=== PATIENT | male | born 1970 | race Caucasian/White ===

== ENCOUNTER 2019-05-28 06:18 | Inpatient (IN) ==
[2019-05-28] MEDS ORDERED: ONDANSETRON INJ 2 MG/ML 2 ML VIAL IV STA (06:37)
[2019-05-28] MEDS ORDERED: SODIUM CHLORIDE 0.9% 1000ML 1,000 ML IV ONE ×2 (06:37→18:40)
[2019-05-28] MEDS ORDERED: ACETAMINOPHEN 1,000 MG/100 ML VIAL IV STA (06:39)
[2019-05-28] MEDS: HYDROmorphone INJ 1 MG/ML SYRINGE IV PRN ×2 (06:49→07:58)
[2019-05-28 06:53] LABS: Basophils # (auto) 0.02 K/uL (0-0.2); Basophils % (auto) 0.2 %; Eosinophils # (auto) 0.12 K/uL (0-0.5); Hematocrit (blood only) 48.7 % (42-52); Hemoglobin 17.6 g/dL (14.0-18.0); Immature Granulocytes # (auto) 0.03 K/uL (0.00-0.02); Immature Granulocytes % (auto) 0.3 %; Lymphocytes # (auto) 2.48 K/uL (1.2-3.4); Lymphocytes % (auto) 21.2 %; Mean Corpuscular Hemoglobin 34.6 pg (25-34); Mean Corpuscular Hgb Conc 36.1 g/dL (32-36); Mean Corpuscular Volume 95.9 fL (80-100); Mean Platelet Volume 11.4 fL (7.4-10.4); Monocytes # (auto) 1.12 K/uL (0.11-0.59); Monocytes % (auto) 9.6 %; Neutrophils # (auto) 7.93 K/uL (1.4-6.5); Neutrophils % (auto) 67.7 %; Platelet Count 206 K/uL (130-400); RDW Coefficient of Variation 12.5 % (11.5-14.5); RDW Standard Deviation 43.4 fL (36.4-46.3); Red Blood Count 5.08 M/uL (4.7-6.1)
[2019-05-28 07:04] LABS: iSTAT Creatinine 0.9 mg/dl (0.6-1.3); iSTAT Ionized Calcium 1.17 mmol/l (1.12-1.32); iSTAT Potassium 3.6 mEq/L (3.3-5.0)
[2019-05-28] MEDS ORDERED: IOVERSOL 100ml IV PRN (07:06)
[2019-05-28 07:11] LABS: Appearance Urine Clear (Clear); Bacteria Urine Automated Negative (Negative); Blood Urine Negative (Negative); Color Urine Dark Yellow; Glucose Urine UA Negative (Negative); Ketones Urine Trace (Negative); Leukocyte Esterase Urine Trace (Negative); Nitrite Urine Negative (Negative); Protein Urine 1+ (Negative); Specific Gravity Urine 1.035 (1.000-1.030); Urobilinogen Urine Negative (Negative)
[2019-05-28 07:15] LABS: Albumin Level 4.1 gm/dl (3.4-5.0); BUN Creatinine Ratio 9.2 (10-20); Creatinine Clr Calc Pharmacy 108.5 ml/min; Est GFR (African American) 98.6; Est GFR (Non-African American) 85.1; Potassium 3.5 mmol/L (3.5-5.1)
[2019-05-28 07:18] LABS: Bilirubin,Total 1.3 mg/dl (0.2-1); Globulin 4.2 gm/dl (2.5-4.0); Total Protein 8.3 gm/dl (6.4-8.2)
[2019-05-28 07:29] LABS: Bilirubin Urine Negative (Negative); Ictotest Urine Negative (Negative)
--- NOTE | 2019-05-28 07:44 | CT Scan Report ---
CT OF THE ABDOMEN AND PELVIS WITH CONTRAST CLINICAL HISTORY: History of appendectomy, cholecystectomy and multiple small bowel obstructions. COMPARISON STUDY: None. TECHNIQUE: Following IV administration of 93 mL of Optiray-320, axial images of the abdomen and pelvi s were obtained from the lung bases to the proximal femurs. Images were reviewed in the axial, sagitt al, and coronal planes. IV contrast was administered without complication. Automated exposure contro l was utilized for the study. A dose lowering technique was utilized adhering to the principles of A DENISE. CT DOSE: 1491.74 mGy.cm FINDINGS: Lung bases are unremarkable. Fatty infiltration of the liver is noted. There is no biliary ductal dilatation status post cholecystectomy. The spleen, adrenal glands, right kidney and pancreas are normal. Note is made of a 2.3 cm cyst within lower pole of the left kidney. There is a 2 mm calcu sandi within the lower pole of the left kidney. There is no hydronephrosis. Major vasculature is patent . There is moderate dilatation of the proximal to mid small bowel. Transition point within the right mid abdomen and axial image 242 of 546 is noted. There is mild associated mesenteric infiltration and trace ascites. No pneumatosis, free air or portal venous gas is present. The more distal small bowel is decompressed. The appendix is surgically absent. Note is made of colonic diverticulosis without e vidence for acute diverticulitis. There are no suspicious osseous lesions. There is no lymphadenopath y. There is no abscess. There are fat-containing bilateral inguinal hernias. IMPRESSION: 1. Findings consistent with a moderate grade partial small bowel obstruction. Transition point within the right mid abdomen, likely on the basis of adhesions. Trace associated ascites and mild mesenteri c infiltration. No pneumatosis, free air or portal venous gas. 2. Fatty infiltration of the liver. ACT 112: Negative or not required by law. Electronically signed by: Scott Drake M.D. 05/28/2019 7:43 AM
--- NOTE | 2019-05-28 08:01 | Emergency Department Note ---
Entered by James Tenorio acting as a scribe for Sreekanth Ragsdale MD History of Present Illness General Chief complaint: Abdominal Pain Stated complaint: ABD PAIN Time Seen by Provider: 05/28/19 06:25 Source: patient History of Present Illness Onset (ago): day(s) 2 Location: abdomen Pain Consistency: + other (worsening) Maximum Pain Intensity: 10 Relieved By: + none Associated symptoms: + denies other symptoms and + nausea/vomiting The patient is a 48 year old M who presents to the Emergency Room with complaints of worsening abdominal pain that started 2 days. The patient notes that his abdominal pain is located in the RUQ of his abdomen. The patient states that his last heavy meal was at a [employer] party, Wednesday night. He notes that last night, he woke up in pain. He states that he has been experiencing nausea and vomiting. He adds that he vomited 3 times last night. He denies that his pain is relieved by anything. He also denies any other symptoms. He notes that he has a history of bowel obstructions, colon resection, an appendectomy and a cholecystectomy. Home Medications Home Medications Medication Instructions Recorded Confirmed Type lisinopril 0 mg PO DAILY 05/28/19 05/28/19 History rasagiline 1 mg PO DAILY 05/28/19 05/28/19 History Allergies Allergy/AdvReac Type Severity Reaction Status Date / Time No Known Allergies Allergy Unverified 05/28/19 07:45 Past Med/Surg History Medical History (Updated 05/28/19 @ 08:01 by Sreekanth Ragsdale MD) Allergies Anxiety Bowel obstruction GERD (gastroesophageal reflux disease) Parkinson's disease Surgical History (Updated 05/28/19 @ 07:05 by James Tenorio) History of appendectomy History of colon resection Hx of cholecystectomy Family History (Updated 05/28/19 @ 07:06 by James Tenorio) Other No significant family history Social History (Updated 05/28/19 @ 07:06 by James Tenorio) Preferred Language: Pashto Feels Safe at Home: Yes Smoking Status: Never smoker Hx Substance Use: No Review of Systems See HPI for pertinent positives & negatives. and A total of 10 systems reviewed and were otherwise negative Physical Exam Vital Signs Vital Signs - 24 hr 05/28/19 06:21 05/28/19 07:32 Temperature 36.8 C Temperature Source Oral Pulse Rate 113 H Respiratory Rate 20 Respiratory Effort / Characteristics Non-Labored Respiratory Depth Normal Blood Pressure 132/90 Blood Pressure Mean 104 Pulse Oximetry 97 92 Oxygen Delivery Method Room Air Room Air Sepsis Recent Fever Within 48 Hours No Sepsis Action Taken by Nursing No Action Required GENERAL: Awake, alert, well-appearing, in no acute distress HENT: Normocephalic, atraumatic. Oropharynx unremarkable. EYES: Normal conjunctiva. Sclera non-icteric. NECK: Supple. No nuchal rigidity. FROM. No JVD. RESPIRATORY: Clear to auscultation. CARDIAC: Regular rate, normal rhythm. Extremities warm and well perfused. Pulses equal. ABDOMEN: Soft, non-distended. Exquisitely tender to palpation of the RUQ. No rebound or guarding. No masses. Old chronic scar down midline. RECTAL: Deferred. MUSCULOSKELETAL: Chest examination reveals no tenderness. The back is symmetrical on inspection without obvious abnormality. There is no CVA tenderness to palpation. No joint edema. LOWER EXTREMITIES: Calves are equal size bilaterally and non-tender. No edema. No discoloration. NEURO: Normal sensorium. No sensory or motor deficits noted. SKIN: No rash or jaundice noted. Course Course 0654: The patient was evaluated in room A3. A complete history and physical exam was performed. 0751: I reviewed the patient's case with Dr. Glasgow, General Surgeon [place], [place]. 0753: I reviewed the patient's case with Dr. Romeo, [facility] Hospitalist. He will evaluate the patient for further management. Administered Medications Hydromorphone HCl (Dilaudid) 1 mg IV Q15M PRN PRN Reason: Pain Stop: 06/11/19 06:36 Last Admin: 05/28/19 07:58 Dose: 1 mg Documented by: [id number] Admin: 05/28/19 06:49 Dose: 1 mg Documented by: [id number] Ioversol (Optiray 320 100ml) 93 ml IV ONCE PRN PRN Reason: Interaction Checking Stop: 06/01/19 07:05 Last Admin: 05/28/19 07:06 Dose: 93 ml Documented by: [id number] Discontinued Medications Sodium Chloride (Nss 1000ml) 1,000 mls @ 999 mls/hr IV .Q1H1M ONE Stop: 05/28/19 07:37 Last Admin: 05/28/19 06:50 Dose: 999 mls/hr Documented by: [id number] Acetaminophen (Ofirmev) 1,000 mg in 100 mls @ 400 mls/hr IV NOW STA Stop: 05/28/19 06:53 Last Infusion: 05/28/19 07:14 Dose: 0 mls/hr Documented by: [id number] Admin: 05/28/19 06:50 Dose: 400 mls/hr Documented by: [id number] Ondansetron HCl (Zofran) 4 mg IV NOW STA Stop: 05/28/19 06:38 Last Admin: 05/28/19 06:49 Dose: 4 mg Documented by: [id number] Medical Decision Making Differential Diagnosis Differential diagnosis: Etiologies such as appendicitis, diverticulitis, PUD, biliary pathology, UTI, pancreatitis, obstruction, mesenteric ischemia, aortic pathology, infections, inflammatory bowel disease, renal colic, as well as others were entertained. Medical Records Attestation: I reviewed the patient's medical records. Home Medications Current Medication List: was personally reviewed by me Laboratory Data Attestation: I reviewed the patient's lab results. Result diagrams: 05/28/19 06:44 05/28/19 06:44 Lab Results 05/28/19 05/28/19 05/28/19 Range/Units 06:44 06:44 06:49 WBC 11.70 H (4.8-10.8) K/uL RBC 5.08 (4.7-6.1) M/uL Hgb 17.6 (14.0-18.0) g/dL POC Hgb 17.0 (14.0-18.0) g/dl Hct 48.7 (42-52) % POC Hct 50 (42-52) % MCV 95.9 (80-100) fL MCH 34.6 H (25-34) pg MCHC 36.1 H (32-36) g/dL RDW Std Deviation 43.4 (36.4-46.3) fL RDW Coeff of Gurpreet 12.5 (11.5-14.5) % Plt Count 206 (130-400) K/uL MPV 11.4 H (7.4-10.4) fL Immature Gran % (Auto) 0.3 % Neut % (Auto) 67.7 % Lymph % (Auto) 21.2 % [place] % (Auto) 9.6 % Eos % (Auto) 1.0 % Baso % (Auto) 0.2 % Immature Gran # (Auto) 0.03 H (0.00-0.02) K/uL Neut # (Auto) 7.93 H (1.4-6.5) K/uL Lymph # (Auto) 2.48 (1.2-3.4) K/uL [place] # (Auto) 1.12 H (0.11-0.59) K/uL Eos # (Auto) 0.12 (0-0.5) K/uL Baso # (Auto) 0.02 (0-0.2) K/uL POC Sodium 140 (135-144) mEq/L Sodium 138 (136-145) mmol/L POC Potassium 3.6 (3.3-5.0) mEq/L Potassium 3.5 (3.5-5.1) mmol/L POC Chloride 100 L (101-112) mEq/L Chloride 104 (98-107) mmol/L Carbon Dioxide 29 (21-32) mmol/L POC Total CO2 28 (24-31) mEq/l Anion Gap 5.0 (3-11) POC Anion Gap 16.0 (16-25) mmol/L POC BUN 10 (7-18) mg/dl BUN 10 (7-18) mg/dl Creatinine 1.04 (0.6-1.4) mg/dl POC Creatinine 0.9 (0.6-1.3) mg/dl Est Cr Clr Drug Dosing 108.5 ml/min Est GFR ( Amer) 98.6 Est GFR (Non-Af Amer) 85.1 BUN/Creatinine Ratio 9.2 L (10-20) Glucose 149 H (70-99) mg/dl POC Glucose (other) 150 H (70-99) mg/dl Calcium 9.0 (8.5-10.1) mg/dl POC Ioniz Calcium Alis 1.17 (1.12-1.32) mmol/l Total Bilirubin 1.3 H (0.2-1) mg/dl AST 13 L (15-37) U/L ALT 35 (12-78) U/L Alkaline Phosphatase 77 (45-117) U/L Total Protein 8.3 H (6.4-8.2) gm/dl Albumin 4.1 (3.4-5.0) gm/dl Globulin 4.2 H (2.5-4.0) gm/dl Albumin/Globulin Ratio 1.0 (0.9-2) Lipase 74 (73-393) U/L Urine Color Urine Appearance (Clear) Urine pH (4.5-7.5) Ur Specific [place] (1.000-1.030) Urine Protein (Negative) Urine Glucose (UA) (Negative) Urine Ketones (Negative) Urine Blood (Negative) Urine Nitrite (Negative) Urine Bilirubin (Negative) Urine Urobilinogen (Negative) Ur Leukocyte Esterase (Negative) Urine WBC (Auto) (0-5) /hpf Urine RBC (Auto) (0-4) /hpf U Hyaline Cast (Auto) (0-5) /lpf U Epithel Cells (Auto) (0-5) /lpf Urine Bacteria (Auto) (Negative) 05/28/19 Range/Units 06:59 WBC (4.8-10.8) K/uL RBC (4.7-6.1) M/uL Hgb (14.0-18.0) g/dL POC Hgb (14.0-18.0) g/dl Hct (42-52) % POC Hct (42-52) % MCV (80-100) fL MCH (25-34) pg MCHC (32-36) g/dL RDW Std Deviation (36.4-46.3) fL RDW Coeff of Gurpreet (11.5-14.5) % Plt Count (130-400) K/uL MPV (7.4-10.4) fL Immature Gran % (Auto) % Neut % (Auto) % Lymph % (Auto) % [place] % (Auto) % Eos % (Auto) % Baso % (Auto) % Immature Gran # (Auto) (0.00-0.02) K/uL Neut # (Auto) (1.4-6.5) K/uL Lymph # (Auto) (1.2-3.4) K/uL [place] # (Auto) (0.11-0.59) K/uL Eos # (Auto) (0-0.5) K/uL Baso # (Auto) (0-0.2) K/uL POC Sodium (135-144) mEq/L Sodium (136-145) mmol/L POC Potassium (3.3-5.0) mEq/L Potassium (3.5-5.1) mmol/L POC Chloride (101-112) mEq/L Chloride (98-107) mmol/L Carbon Dioxide (21-32) mmol/L POC Total CO2 (24-31) mEq/l Anion Gap (3-11) POC Anion Gap (16-25) mmol/L POC BUN (7-18) mg/dl BUN (7-18) mg/dl Creatinine (0.6-1.4) mg/dl POC Creatinine (0.6-1.3) mg/dl Est Cr Clr Drug Dosing ml/min Est GFR ( Amer) Est GFR (Non-Af Amer) BUN/Creatinine Ratio (10-20) Glucose (70-99) mg/dl POC Glucose (other) (70-99) mg/dl Calcium (8.5-10.1) mg/dl POC Ioniz Calcium Alis (1.12-1.32) mmol/l Total Bilirubin (0.2-1) mg/dl AST (15-37) U/L ALT (12-78) U/L Alkaline Phosphatase (45-117) U/L Total Protein (6.4-8.2) gm/dl Albumin (3.4-5.0) gm/dl Globulin (2.5-4.0) gm/dl Albumin/Globulin Ratio (0.9-2) Lipase (73-393) U/L Urine Color Dark Yellow Urine Appearance Clear (Clear) Urine pH 5.0 (4.5-7.5) Ur Specific [place] 1.035 H (1.000-1.030) Urine Protein 1+ H (Negative) Urine Glucose (UA) Negative (Negative) Urine Ketones Trace H (Negative) Urine Blood Negative (Negative) Urine Nitrite Negative (Negative) Urine Bilirubin Negative (Negative) Urine Urobilinogen Negative (Negative) Ur Leukocyte Esterase Trace H (Negative) Urine WBC (Auto) 1-5 (0-5) /hpf Urine RBC (Auto) 5-10 H (0-4) /hpf U Hyaline Cast (Auto) 5-10 H (0-5) /lpf U Epithel Cells (Auto) 10-20 H (0-5) /lpf Urine Bacteria (Auto) Negative (Negative) Imaging Data Radiologist's Impression: Radiology results as stated below per my review and the radiologist's interpretation: CT OF THE ABDOMEN AND PELVIS WITH CONTRAST CLINICAL HISTORY: History of appendectomy, cholecystectomy and multiple small bowel obstructions. COMPARISON STUDY: None. TECHNIQUE: Following IV administration of 93 mL of Optiray-320, axial images of the abdomen and pelvis were obtained from the lung bases to the proximal femurs. Images were reviewed in the axial, sagittal, and coronal planes. IV contrast was administered without complication. Automated exposure control was utilized for the study. A dose lowering technique was utilized adhering to the principles of ALARA. CT DOSE: 1491.74 mGy.cm FINDINGS: Lung bases are unremarkable. Fatty infiltration of the liver is noted. There is no biliary ductal dilatation status post cholecystectomy. The spleen, adrenal glands, right kidney and pancreas are normal. Note is made of a 2.3 cm cyst within lower pole of the left kidney. There is a 2 mm calculus within the lower pole of the left kidney. There is no hydronephrosis. Major vasculature is patent. There is moderate dilatation of the proximal to mid small bowel. Transition point within the right mid abdomen and axial image 242 of 546 is noted. There is mild associated mesenteric infiltration and trace ascites. No pneumatosis, free air or portal venous gas is present. The more distal small bowel is decompressed. The appendix is surgically absent. Note is made of colonic diverticulosis without evidence for acute diverticulitis. There are no suspicious osseous lesions. There is no lymphadenopathy. There is no abscess. T here are fat-containing bilateral inguinal hernias. IMPRESSION: 1. Findings consistent with a moderate grade partial small bowel obstruction. Transition point within the right mid abdomen, likely on the basis of adhesions. Trace associated ascites and mild mesenteric infiltration. No pneumatosis, free air or portal venous gas. 2. Fatty infiltration of the liver. ACT 112: Negative or not required by law. Electronically signed by: Scott Drake M.D. 05/28/2019 7:43 AM Blood Pressure Blood Pressure Findings: Elevated blood pressure Blood Pressure Disposition: further management by hospitalist ISELA Bonilla This is a 48-year-old male who presents emergency department complaining of abdominal pain. The patient is diffusely tender on abdominal examination. He has a history of small bowel obstructions. He was sent for CAT scan the abdomen pelvis. Patient does have an elevation his white blood cell count of 13,000. He was given Tylenol as well as Dilaudid and a normal saline bolus here in the emergency department. Patient's CAT scan is concerning for a bowel obstruction. An NG tube was placed. He was discussed with both surgery as well as the [facility]. Patient was in agreement with the treatment plan. Impression & Plan Abdominal pain, Small bowel obstruction Discharge Plan Visit Data Chief Complaint: Abdominal Pain Stated Complaint: ABD PAIN ED Provider: Sreekanth Ragsdale Discharge Problem: Abdominal pain, Small bowel obstruction Patient Disposition: Admitted As Inpatient Forms Stand Alone Forms: Call Back Authorization, [facility] Prescriptions Prescriptions: No Action lisinopril 10 mg tablet 0 mg PO DAILY RF: 0 rasagiline 1 mg tablet 1 mg PO DAILY RF: 0 Referrals Referrals: PCP,NO [Primary Care Provider] - Discharge Problem: Abdominal pain Qualifiers: Abdominal location: unspecified location Qualified Code(s): R10.9 - Unspecified abdominal pain The scribe's documentation has been prepared under my direction and personally reviewed by me in its entirety. I confirm that the note above accurately reflects all work, treatment, procedures, and medical decision making performed by me.
--- NOTE | 2019-05-28 08:25 | History & Physical Report ---
Date of Service May 28, 2019 Assessment & Plan (1) Small bowel obstruction: Patient has a history of multiple small bowel obstructions in the past. NG tube placed in the ER with pain medication and IV fluids with some improvement in his pain. He remains nauseous despite Zofran. We will give a dose of Phenergan now and continue both on the floor as needed. Continue bowel rest with NG tube in place. General surgery has been consulted. Lactate ordered and blood cultures ordered with report of chills. No fever at this time but will monitor closely. Continue supportive care including scheduled Tylenol to assist in reducing narcotic needs. (2) Chest pain: Patient reports chest pain since Wednesday. Troponin is pending. EKG is pending. He is diaphoretic without a history of CAD. Risk factors include hypertension. Will monitor closely on telemetry and trend enzymes. Rectal suppository of aspirin given now. (3) HTN (hypertension): Hold lisinopril as patient is n.p.o. at this time. Blood pressure is at goal. Continue to monitor closely and managed with IV medications as needed. (4) Parkinson's disease: Patient is on rasagiline only 1 mg PO daily, usually taken in the morning. We will hold the dose this morning however, it will be important to give him his dose tomorrow which will require clamping the NG tube for 2 hours to ensure absorption. The patient is managed by gastroenterology was last seen him in 2013. He is overall been stable. (5) DVT prophylaxis: Lovenox Full code Disposition-to telemetry with downgrade to [facility] once ACS is ruled out. Plan for home when medically cleared for discharge. Kelly Pearson DO [facility] Hospitalist History of Present Illness Chief Complaint: abdominal pain 48-year-old man presents with abdominal pain and vomiting. Work-up in the ER revealed evidence of a small bowel obstruction on CT scan. The patient has a history of multiple small bowel obstructions in the past. He reports starting to feel unwell on Wednesday afternoon and subsequently developed abdominal pain that was sharp when he lied supine and turned on his side. He then developed nausea and vomiting that was persistent with worsening abdominal pain. He reports normal bowel movements prior to this. He reports chills without fevers. He was given Zofran and an NG tube was placed this morning, however he reports persistent nausea. He was given 2 mg of IV Dilaudid at 2 separate occasions along with a liter of saline and reports the pain is much better. He is diaphoretic on exam. He reports chest pain that began after the abdominal issues. He denies a history of cardiac issues and has a history of high blood pressure managed with lisinopril 10 mg daily and Parkinson's disease. He denies smoking. Review of systems is otherwise negative. Allergies Allergy/AdvReac Type Severity Reaction Status Date / Time No Known Allergies Allergy Unverified 05/28/19 07:45 Home Medications Home Medications Medication Instructions Recorded Confirmed Type lisinopril 10 mg PO DAILY 05/28/19 05/28/19 History rasagiline 1 mg PO DAILY 05/28/19 05/28/19 History Past Med/Surg History Medical History Allergies Anxiety Bowel obstruction Parkinson's disease PUD (peptic ulcer disease) Surgical History History of appendectomy History of colon resection Hx of cholecystectomy Family History Sister Rheumatoid arthritis Social History Preferred Language: Serbian Communication Ability: Effective Beliefs That Will Affect Care: None Current Living Situation: Other Current Living Situation Comment: DAUGHTER Other Information That Helps Us Care for You: No Feels Safe at Home: Yes Safety Concerns: Feels Safe At This Time Smoking Status: Never smoker Hx Alcohol Use: No Hx Substance Use: No Review of Systems Review of Systems: All systems reviewed & are unremarkable except as noted in HPI & below Physical Exam Physical Exam: CONSTITUTIONAL: obese, ill-appearing, diaphoretic, vitals as above EYES: PERRL, normal conjunctivae, no scleral icterus ENT: external ear and nose normal, oropharynx clear, NGT in place with yellowish material coming out NECK: trachea midline, no lymphadenopathy RESPIRATORY: clear to auscultation bilaterally, no crackles, rales or wheezes, normal respiratory effort CARDIOVASCULAR: regular rate and rhythm, S1 and 2 heard without murmurs, gallops or rubs, no JVD, no peripheral edema CHEST: inspection of chest was normal GASTROINTESTINAL: hypoactive bowel sounds, soft, diffusely tender with some guarding to palpation, nondistended, protuberant with large scars in midline and RUQ from multiple complex open procedures in the past MUSCULOSKELETAL: strength 5/5 throughout, head is normocephalic and atraumatic, able to sit up in bed on his own. Moves all extremities equally. SKIN: warm and diaphoretic NEUROLOGIC: CN 2-12 grossly intact, no sensory deficit, normal cognition, normal speech, no gross focal deficits. PSYCHIATRIC: alert cooperative and oriented to person, place and time. Results & Data Vital Signs (Past 12 Hours) Vital Signs Temp Pulse Resp BP Pulse Ox 05/28/19 07:32 92 05/28/19 06:21 36.8 C 113 H 20 132/90 97 Laboratory Results Short CBC 05/28/19 Range/Units 06:44 WBC 11.70 H (4.8-10.8) K/uL Hgb 17.6 (14.0-18.0) g/dL Hct 48.7 (42-52) % Plt Count 206 (130-400) K/uL BMP 05/28/19 06:44 Sodium 138 Potassium 3.5 Chloride 104 Carbon Dioxide 29 BUN 10 Creatinine 1.04 Glucose 149 H Calcium 9.0 Liver Function 05/28/19 Range/Units 06:44 Total Bilirubin 1.3 H (0.2-1) mg/dl AST 13 L (15-37) U/L ALT 35 (12-78) U/L Alkaline Phosphatase 77 (45-117) U/L Albumin 4.1 (3.4-5.0) gm/dl Urine 05/28/19 Range/Units 06:59 Urine Color Dark Yellow Urine Appearance Clear (Clear) Urine pH 5.0 (4.5-7.5) Ur Specific [place] 1.035 H (1.000-1.030) Urine Protein 1+ H (Negative) Urine Glucose (UA) Negative (Negative) Medications Administered GIVEN IN ER: Dilaudid 2mg IV APAP 1000mg IV NSS 1000mL Zofran 4mg IV
[2019-05-28] MEDS ORDERED: PROMETHAZINE 12.5 MG/50.5 ML BAG IV STA (09:19)
[2019-05-28] MEDS ORDERED: ASPIRIN 300 MG SUPP PR STA (09:30)
[2019-05-28] MEDS ORDERED: PROMETHAZINE HCL 12.5 MG in SODIUM CHLORIDE 0.9% 50 ML IV PRN (10:09)
[2019-05-28] MEDS ORDERED: PROMETHAZINE HCL 12.5 MG in SODIUM CHLORIDE 0.9% 50 ML IV ONE (10:30)
[2019-05-28] MEDS: SODIUM CHLORIDE 0.9% 1000ML 1,000 ML IV SCH ×2 (10:36→18:24)
[2019-05-28] MEDS: HYDROmorphone INJ 0.5 MG/0.5 ML SYR IV PRN ×2 (10:42→21:32)
--- NOTE | 2019-05-28 14:13 | Surgery Consultation ---
Date of Consultation May 28, 2019 Assessment & Plan (1) Small bowel obstruction: ngt decompression 1-2 more days passing flatus no BM yet should resolve History of Present Illness Attending Physician: Kelly Pearson DO History of Present Illness This is a 48 year old male who presented to the ED with complaints of worsening abdominal pain that started 2 days, mainly right sided. He had pain initially then followed with nausea and vomiting. He adds that he vomited 3 times last night. He denies that his pain is relieved by anything. He also denies any other symptoms. He notes that he has a history of bowel obstructions, colon resection, an appendectomy and a cholecystectomy. He has not had recent BM. Allergies Allergy/AdvReac Type Severity Reaction Status Date / Time No Known Allergies Allergy Unverified 05/28/19 07:45 Home Medications Home Medications Medication Instructions Recorded Confirmed Type lisinopril 10 mg PO DAILY 05/28/19 05/28/19 History rasagiline 1 mg PO DAILY 05/28/19 05/28/19 History Patient History Medical History (Updated 05/28/19 @ 09:42 by Kelly Pearson DO) Allergies Anxiety Bowel obstruction Parkinson's disease Parkinsons disease PUD (peptic ulcer disease) Surgical History History of appendectomy History of colon resection Hx of cholecystectomy Family History Sister Rheumatoid arthritis Social History Preferred Language: Maldivian Communication Ability: Effective Beliefs That Will Affect Care: None Current Living Situation: Other Current Living Situation Comment: DAUGHTER Other Information That Helps Us Care for You: No Feels Safe at Home: Yes Safety Concerns: Feels Safe At This Time Smoking Status: Never smoker Hx Alcohol Use: No Hx Substance Use: No Review of Systems Constitutional: no fever, no chills, no fatigue and no anorexia Respiratory: no cough, no chest congestion, no dyspnea and no dyspnea on exertion Cardiovascular: no chest pain, no chest pain at rest and no dyspnea Gastrointestinal: + abdominal pain, + bloating, + nausea, + vomiting and + change in bowel habits Genitourinary: no dysuria, no urinary frequency, no urinary hesitancy and no nocturia Musculoskeletal: no back pain, no neck pain, no joint pain, no stiffness and no muscle weakness Integumentary: no rash and no non-healing lesions Neurologic: no localized weakness and no generalized weakness Psychiatric: no behavioral changes Endocrine: no fatigue Hematologic / Lymphatic: no easy bleeding and no easy bruising Physical Exam Constitutional: well developed and well nourished; no acute distress Neck: trachea midline Respiratory: normal respiratory effort, lungs clear to auscultation Cardiovascular: RRR, no murmur, no edema Gastrointestinal (Abdomen): Inspection/Auscultation: abdomen normal to inspection, + abdomen distended and normal bowel sounds Percussion/Palpation: abdomen nontender and no guarding Musculoskeletal: Head/Neck/Chest: + head abnormal to inspection and normocephalic Skin: no rashes, warm and dry Psychiatric: Orientation: alert and oriented x 3 Lymphatic: no lymphadenopathy Results & Data Vital Signs (Past 12 Hours) Vital Signs Temp Pulse Pulse Resp BP BP Pulse Ox 05/28/19 10:00 37.1 C 82 16 117/79 94 05/28/19 08:36 81 L 05/28/19 08:30 94 H 17 123/95 93 05/28/19 08:00 94 H 15 126/95 91 05/28/19 07:35 100 H 30 H 140/89 90 05/28/19 07:32 92 05/28/19 06:21 36.8 C 113 H 20 132/[address] OF THE ABDOMEN AND PELVIS WITH CONTRAST CLINICAL HISTORY: History of appendectomy, cholecystectomy and multiple small bowel obstructions. COMPARISON STUDY: None. TECHNIQUE: Following IV administration of 93 mL of Optiray-320, axial images of the abdomen and pelvis were obtained from the lung bases to the proximal femurs. Images were reviewed in the axial, sagittal, and coronal planes. IV contrast was administered without complication. Automated exposure control was utilized for the study. A dose lowering technique was utilized adhering to the principles of ALARA. CT DOSE: 1491.74 mGy.cm FINDINGS: Lung bases are unremarkable. Fatty infiltration of the liver is noted. There is no biliary ductal dilatation status post cholecystectomy. The spleen, adrenal glands, right kidney and pancreas are normal. Note is made of a 2.3 cm cyst within lower pole of the left kidney. There is a 2 mm calculus within the lower pole of the left kidney. There is no hydronephrosis. Major vasculature is patent. There is moderate dilatation of the proximal to mid small bowel. Transition point within the right mid abdomen and axial image 242 of 546 is noted. There is mild associated mesenteric infiltration and trace ascites. No pneumatosis, free air or portal venous gas is present. The more distal small bowel is decompressed. The appendix is surgically absent. Note is made of colonic diverticulosis without evidence for acute diverticulitis. There are no suspicious osseous lesions. There is no lymphadenopathy. There is no abscess. There are fat-containing bilateral inguinal hernias. IMPRESSION: 1. Findings consistent with a moderate grade partial small bowel obstruction. Transition point within the right mid abdomen, likely on the basis of adhesions. Trace associated ascites and mild mesenteric infiltration. No pneumatosis, free air or portal venous gas. 2. Fatty infiltration of the liver.
[2019-05-28] MEDS ORDERED: HYDROmorphone INJ 1 MG/ML SYRINGE IV STA (15:45)
[2019-05-28] MEDS: ACETAMINOPHEN 1,000 MG/100 ML VIAL IV SCH ×2 (16:06→23:52)
--- NOTE | 2019-05-28 17:08 | XRay Report ---
KUB CLINICAL HISTORY: NG tube placement COMPARISON STUDY: CT of the abdomen and pelvis May 28, 2019 at 7:22 AM. FINDINGS: Note is made of elevation of the right hemidiaphragm. Tip of nasogastric tube is within the body of the stomach. There are cholecystectomy clips. A few loops of mildly dilated small bowel are noted. The pelvis was not included on this exam. IMPRESSION: Tip of nasogastric tube within the body of stomach. ACT 112: Negative or not required by law. Electronically signed by: Scott Drake M.D. 05/28/2019 5:06 PM
[2019-05-29] MEDS: SODIUM CHLORIDE 0.9% 1000ML 1,000 ML IV SCH (03:00)
[2019-05-29 07:20] LABS: Hematocrit (blood only) 40.8 % (42-52); Mean Corpuscular Hemoglobin 33.5 pg (25-34); Mean Corpuscular Hgb Conc 34.3 g/dL (32-36); Mean Corpuscular Volume 97.6 fL (80-100); Platelet Count 153 K/uL (130-400); RDW Coefficient of Variation 12.9 % (11.5-14.5); RDW Standard Deviation 45.9 fL (36.4-46.3); Red Blood Count 4.18 M/uL (4.7-6.1); White Blood Count 6.88 K/uL (4.8-10.8)
[2019-05-29 07:27] LABS: BUN Creatinine Ratio 12.3 (10-20); Calcium 7.5 mg/dl (8.5-10.1); Est GFR (Non-African American) 105.3; Potassium 3.6 mmol/L (3.5-5.1)
[2019-05-29 07:54] LABS: Magnesium 2.1 mg/dl (1.8-2.4)
[2019-05-29] MEDS: D5W AND 1/2NSS 1,000 ML IV SCH ×2 (07:54→23:19)
[2019-05-29] MEDS: ACETAMINOPHEN 1,000 MG/100 ML VIAL IV SCH ×3 (07:55→23:19)
--- NOTE | 2019-05-29 08:17 | XRay Report ---
KUB CLINICAL HISTORY: Follow-up small bowel obstruction. FINDINGS: 3 AP supine abdominal radiographs are compared to abdominal radiographs and CT dated 2018. Cholecystectomy clips are noted in the right upper quadrant. An enteric tube projects over the stomach. There is evidence of persistent small bowel obstruction, with small bowel loops measuring up to 5 cm diameter. Gas is noted in the right colon. No evidence of intraperitoneal free air is seen o n these supine images. Excreted IV contrast is present in the bladder. There are numerous pelvic phle boliths. The bony structures appear intact. IMPRESSION: There is evidence of persistent small bowel obstruction. Electronically signed by: Jun Salazar M.D. 05/29/2019 8:16 AM
[2019-05-29] MEDS ORDERED: CALCIUM GLUCONATE 10% 1,000 MG in SODIUM CHLORIDE 0.9% 50 ML IV STA (11:50)
--- NOTE | 2019-05-29 12:01 | Hospitalist Progress Note ---
Date of Service May 29, 2019 Assessment & Plan (1) Small bowel obstruction: -admission CT scan Findings consistent with a moderate grade partial small bowel obstruction. Transition point within the right mid abdomen, likely on the basis of adhesions. -continue bowel rest and suctioning with NG tube -on IV fluids with dextrose to avoid hypoglycemia -pain and nausea appears controlled -general surgery consult following the patient -replete electrolytes while on NG tube suction; calcium gluconate IV ordered on 05/29/19 (2) Chest pain: -Patient had previously reported chest pain -was given rectal suppository of aspirin previously -troponins negative x 3 -initial chest discomfort may be referred pain from bowel obstruction -no current chest pain at this time (3) HTN (hypertension): -hold oral lisinopril as patient is n.p.o. at this time -blood pressure stable (4) Parkinson's disease: -Patient is on rasagiline only 1 mg PO daily at home -because of NG tube status, this can be held at this time (5) DVT prophylaxis: Lovenox, encourage ambulation Full code Subjective abdomen has prior scarring. abdomen is soft. tenderness around right upper epigastrum as per patient. patient reports he is only passing a little bit of flatus. no bowel movements yet. no nausea currently. no chest pain. has NG tube in place and breathing on room air Review of Systems Review of Systems: All systems reviewed & are unremarkable except as noted in HPI & below Physical Exam Constitutional: comfortable Eyes: PERRL, conjunctivae normal, anicteric sclerae EOM intact bilaterally ENMT: has NG tube Neck: normal visual inspection Cardiovascular: Rate/Rhythm: regular rate and regular rhythm Gastrointestinal (Abdomen): abdomen has prior scarring. abdomen is soft. tenderness around right upper epigastrum as per patient. Musculoskeletal: Head/Neck/Chest: normocephalic and head atraumatic Neurologic: PERRL, EOMI, accommodation nl, no face palsy, no dysarthria CN's II-XI intact bilaterally Psychiatric: A+Ox3, euthymic affect Results & Data Vital Signs (Past 12 Hours) Vital Signs Temp Pulse Pulse Resp BP Pulse Ox 05/29/19 11:06 36.7 C 82 20 130/78 96 05/29/19 07:18 90 05/29/19 07:00 36.6 C 85 20 132/83 94 05/29/19 03:25 36.8 C 75 18 116/75 92
--- NOTE | 2019-05-29 12:20 | Surgery Progress Note ---
Date of Service May 29, 2019 Assessment & Plan (1) Small bowel obstruction: KUB showing persistent SBO NGT with 950 cc output since placement abdomen soft but distended no good return of bowel function as of yet Plan: Continue conservative measures: NGT to LIS, NPO may have mouth swabs and chips, IV fluids, Pain management (limit narcotics if possible), IV zofran prn nausea Encouraged patient OOB to chair and ambulate hallway May clamp NGT to ambulate hallway Continue medical management Discussed with Dr. Barth who agrees with above, to evaluate patient later this afternoon. Subjective feeling about the same today still having abdominal pain, mostly in upper abdomen, pain not lasting as long no nausea or vomiting only passing small amount of flatus since admission , none today has not ambulated Physical Exam Constitutional: WD/WN, vitals as above no acute distress Gastrointestinal (Abdomen): Inspection/Auscultation: + abdomen distended (mild distention) and + abdominal surgical scar (midline laparotomy as well as RLQ) Percussion/Palpation: + abdomen tender (upper abdomen, more in RUQ) and abdomen soft; no guarding and abdomen not rigid Skin: no rashes, warm and dry Psychiatric: A+Ox3, euthymic affect Results & Data Vital Signs (Past 12 Hours) Vital Signs Temp Pulse Pulse Resp BP Pulse Ox 05/29/19 11:06 36.7 C 82 20 130/78 96 05/29/19 07:18 90 05/29/19 07:00 36.6 C 85 20 132/83 94 05/29/19 03:25 36.8 C 75 18 116/75 92 Laboratory Results 05/29/19 05/29/19 05/29/19 Range/Units 06:35 06:35 06:35 WBC 6.88 (4.8-10.8) K/uL RBC 4.18 L (4.7-6.1) M/uL Hgb 14.0 D (14.0-18.0) g/dL Hct 40.8 L (42-52) % MCV 97.6 (80-100) fL MCH 33.5 (25-34) pg MCHC 34.3 (32-36) g/dL RDW Std Deviation 45.9 (36.4-46.3) fL RDW Coeff of Gurpreet 12.9 (11.5-14.5) % Plt Count 153 (130-400) K/uL MPV 11.0 H (7.4-10.4) fL Sodium 140 (136-145) mmol/L Potassium 3.6 (3.5-5.1) mmol/L Chloride 110 H (98-107) mmol/L Carbon Dioxide 29 (21-32) mmol/L Anion Gap 1.0 L (3-11) BUN 10 (7-18) mg/dl Creatinine 0.82 (0.6-1.4) mg/dl Est Cr Clr Drug Dosing 153.0 ml/min Est GFR ( Amer) 122.0 Est GFR (Non-Af Amer) 105.3 BUN/Creatinine Ratio 12.3 (10-20) Glucose 110 H (70-99) mg/dl Calcium 7.5 L D (8.5-10.1) mg/dl Phosphorus 2.0 L (2.5-4.9) mg/dl Magnesium 2.1 (1.8-2.4) mg/dl Troponin I (0-0.045) ng/ml 05/28/19 05/28/19 Range/Units 21:55 15:47 WBC (4.8-10.8) K/uL RBC (4.7-6.1) M/uL Hgb (14.0-18.0) g/dL Hct (42-52) % MCV (80-100) fL MCH (25-34) pg MCHC (32-36) g/dL RDW Std Deviation (36.4-46.3) fL RDW Coeff of Gurpreet (11.5-14.5) % Plt Count (130-400) K/uL MPV (7.4-10.4) fL Sodium (136-145) mmol/L Potassium (3.5-5.1) mmol/L Chloride (98-107) mmol/L Carbon Dioxide (21-32) mmol/L Anion Gap (3-11) BUN (7-18) mg/dl Creatinine (0.6-1.4) mg/dl Est Cr Clr Drug Dosing ml/min Est GFR ( Amer) Est GFR (Non-Af Amer) BUN/Creatinine Ratio (10-20) Glucose (70-99) mg/dl Calcium (8.5-10.1) mg/dl Phosphorus (2.5-4.9) mg/dl Magnesium (1.8-2.4) mg/dl Troponin I < 0.015 < 0.015 (0-0.045) ng/ml Diagnostic Findings KUB CLINICAL HISTORY: Follow-up small bowel obstruction. FINDINGS: 3 AP supine abdominal radiographs are compared to abdominal radiographs and CT dated 05/28/2019. Cholecystectomy clips are noted in the right upper quadrant. An enteric tube projects over the stomach. There is evidence of persistent small bowel obstruction, with small bowel loops measuring up to 5 cm diameter. Gas is noted in the right colon. No evidence of intraperitoneal free air is seen on these supine images. Excreted IV contrast is present in the bladder. There are numerous pelvic phleboliths. The bony structures appear intact. IMPRESSION: There is evidence of persistent small bowel obstruction.
[2019-05-29] MEDS: HYDROmorphone INJ 0.5 MG/0.5 ML SYR IV PRN (15:19)
[2019-05-29] MEDS: RASAGILINE 1 MG NG SCH (16:12)
[2019-05-30 06:05] LABS: Hematocrit (blood only) 38.5 % (42-52); Hemoglobin 13.7 g/dL (14.0-18.0); Mean Corpuscular Hemoglobin 33.7 pg (25-34); Mean Corpuscular Hgb Conc 35.6 g/dL (32-36); Mean Corpuscular Volume 94.6 fL (80-100); Platelet Count 146 K/uL (130-400); RDW Coefficient of Variation 12.2 % (11.5-14.5); RDW Standard Deviation 41.9 fL (36.4-46.3); Red Blood Count 4.07 M/uL (4.7-6.1); White Blood Count 5.73 K/uL (4.8-10.8)
[2019-05-30 06:39] LABS: BUN Creatinine Ratio 11.1 (10-20); Calcium 8.4 mg/dl (8.5-10.1); Creatinine Clr Calc Pharmacy 179.2 ml/min; Est GFR (African American) 130.3; Est GFR (Non-African American) 112.4; Magnesium 2.1 mg/dl (1.8-2.4); Potassium 3.2 mmol/L (3.5-5.1)
[2019-05-30 06:44] LABS: Albumin Globulin Ratio 0.9 (0.9-2); Globulin 3.3 gm/dl (2.5-4.0); Total Protein 6.3 gm/dl (6.4-8.2)
[2019-05-30] MEDS: ACETAMINOPHEN 1,000 MG/100 ML VIAL IV SCH ×2 (07:41→15:51)
[2019-05-30] MEDS: POTASSIUM CHLORIDE / WTR 10 MEQ/100 ML PLCT IV SCH ×3 (07:45→10:12)
--- NOTE | 2019-05-30 07:55 | Hospitalist Progress Note ---
Date of Service May 30, 2019 Assessment & Plan (1) Small bowel obstruction: -admission CT scan Findings consistent with a moderate grade partial small bowel obstruction. Transition point within the right mid abdomen, likely on the basis of adhesions. -continue bowel rest and suctioning with NG tube -on IV fluids with dextrose to avoid hypoglycemia -pain and nausea appears controlled -general surgery consult following the patient -05/30/19: tenderness of abdomen is more left sided compared to upper right quadrant yesterday. patient has not yet made significant flatus and also has not made bowel movement. patient about to go to get KUB X ray as ordered by general surgery Hypokalemia -replete electrolytes while on NG tube suction -calcium gluconate IV ordered on 05/29/19 -serum potassium 3.2 on 05/30/19: IV potassium to be given (2) Chest pain: -Patient had previously reported chest pain -was given rectal suppository of aspirin previously -troponins negative x 3 -initial chest discomfort may be referred pain from bowel obstruction -no current chest pain at this time (3) HTN (hypertension): -hold oral lisinopril as patient is n.p.o. at this time -blood pressure stable (4) Parkinson's disease: -Patient is on rasagiline only 1 mg PO daily at home, can be given crushed through NG tube (5) DVT prophylaxis: SCDs, encourage ambulation Full code Subjective tenderness of abdomen is more left sided compared to upper right quadrant yesterday. patient has not yet made significant flatus and also has not made bowel movement. patient relatively comfortable otherwise. no chest pain. no palpitations. no vomiting. not nauseous. no dizziness. no lightheadedness. patient about to go to get KUB X ray as ordered by general surgery Review of Systems Review of Systems: All systems reviewed & are unremarkable except as noted in HPI & below Physical Exam Constitutional: comfortable Eyes: PERRL, conjunctivae normal, anicteric sclerae EOM intact bilaterally ENMT: NG tube with suctioning Neck: normal visual inspection Respiratory: normal respiratory effort, lungs clear to auscultation Cardiovascular: Rate/Rhythm: regular rate and regular rhythm Gastrointestinal (Abdomen): tenderness of abdomen is more left sided compared to upper right quadrant yesterday Musculoskeletal: Head/Neck/Chest: normocephalic and head atraumatic Neurologic: PERRL, EOMI, accommodation nl, no face palsy, no dysarthria CN's II-XI intact bilaterally Psychiatric: A+Ox3, euthymic affect Results & Data Vital Signs (Past 12 Hours) Vital Signs Temp Pulse Resp BP Pulse Ox 05/30/19 06:48 36.8 C 78 18 130/84 93 05/29/19 22:30 36.7 C 90 19 128/77 90
--- NOTE | 2019-05-30 08:17 | XRay Report ---
KUB CLINICAL HISTORY: Evaluate small bowel obstruction. COMPARISON STUDY: CT of the abdomen and pelvis May 28, 2019. KUB May 29, 2019. FINDINGS: Tip of nasogastric tube is within the body of the stomach. Cholecystectomy clips are noted. There are right lower quadrant surgical clips as well. Moderate small bowel dilatation persists. Sma ll bowel which measure up to 6.8 cm in caliber. Gaseous distention has mildly decreased. Caliber of d istal small bowel is relatively diminished when compared to the proximal small bowel. IMPRESSION: Findings suggestive of a persistent small bowel obstruction. Small bowel dilatation like ly slightly improved since prior exam. ACT 112: Negative or not required by law. Electronically signed by: Scott Drake M.D. 05/30/2019 8:15 AM
[2019-05-30] MEDS: RASAGILINE 1 MG NG SCH (09:09)
[2019-05-30] MEDS ORDERED: bisacodyL 10 MG SUPP PR ONE (09:45)
--- NOTE | 2019-05-30 10:05 | Surgery Progress Note ---
Date of Service May 30, 2019 Assessment & Plan (1) Small bowel obstruction: KUB showing persistent SBO, some stool in rectum and right colon per my read NGT with 850 cc output last 24 hours, dark brown/red output today abdomen soft but distended, tender in LUQ no good return of bowel function as of yet Plan: Continue conservative measures: NGT to LIS, NPO may have mouth swabs and chips, IV fluids, Pain management (limit narcotics if possible), IV zofran prn nausea Will start IV Pepcid given dark NGT output and NPO status Dulcolax suppository one time Encouraged patient OOB to chair and ambulate hallway May clamp NGT to ambulate hallway Continue medical management Discussed with patient possibility of needing operative intervention if bowel function does not return with conservative measures. Patient understood. Dr. Galarza has seen and examined pt, agrees with above. Subjective still having abdominal pain, mostly upper not passing flatus or bowel movement no nausea or vomiting Physical Exam Constitutional: WD/WN, vitals as above no acute distress Respiratory: no respiratory distress Gastrointestinal (Abdomen): Inspection/Auscultation: + abdomen distended and + abdominal surgical scar (midline laparotomy scar, RUQ cholecystectomy scar, RLQ scar) Percussion/Palpation: + abdomen tender (RUQ and LUQ) and abdomen soft; no guarding and abdomen not rigid Skin: no rashes, warm and dry Psychiatric: A+Ox3, euthymic affect Results & Data Vital Signs (Past 12 Hours) Vital Signs Temp Pulse Resp BP Pulse Ox 05/30/19 06:48 36.8 C 78 18 130/84 93 05/29/19 22:30 36.7 C 90 19 128/77 90 Laboratory Results 05/30/19 05/30/19 Range/Units 05:37 05:37 WBC 5.73 (4.8-10.8) K/uL RBC 4.07 L (4.7-6.1) M/uL Hgb 13.7 L (14.0-18.0) g/dL Hct 38.5 L (42-52) % MCV 94.6 (80-100) fL MCH 33.7 (25-34) pg MCHC 35.6 (32-36) g/dL RDW Std Deviation 41.9 (36.4-46.3) fL RDW Coeff of Gurpreet 12.2 (11.5-14.5) % Plt Count 146 (130-400) K/uL MPV 11.0 H (7.4-10.4) fL Sodium 140 (136-145) mmol/L Potassium 3.2 L (3.5-5.1) mmol/L Chloride 105 (98-107) mmol/L Carbon Dioxide 31 (21-32) mmol/L Anion Gap 4.0 (3-11) BUN 8 (7-18) mg/dl Creatinine 0.70 (0.6-1.4) mg/dl Est Cr Clr Drug Dosing 179.2 ml/min Est GFR ( Amer) 130.3 Est GFR (Non-Af Amer) 112.4 BUN/Creatinine Ratio 11.1 (10-20) Glucose 96 (70-99) mg/dl Calcium 8.4 L (8.5-10.1) mg/dl Magnesium 2.1 (1.8-2.4) mg/dl Total Bilirubin 1.0 (0.2-1) mg/dl AST 9 L (15-37) U/L ALT 22 (12-78) U/L Alkaline Phosphatase 57 (45-117) U/L Total Protein 6.3 L D (6.4-8.2) gm/dl Albumin 3.0 L (3.4-5.0) gm/dl Globulin 3.3 (2.5-4.0) gm/dl Albumin/Globulin Ratio 0.9 (0.9-2) Diagnostic Findings KUB CLINICAL HISTORY: Evaluate small bowel obstruction. COMPARISON STUDY: CT of the abdomen and pelvis May 28, 2019. KUB May 29, 2019. FINDINGS: Tip of nasogastric tube is within the body of the stomach. Cholecystectomy clips are noted. There are right lower quadrant surgical clips as well. Moderate small bowel dilatation persists. Small bowel which measure up to 6.8 cm in caliber. Gaseous distention has mildly decreased. Caliber of distal small bowel is relatively diminished when compared to the proximal small bowel. IMPRESSION: Findings suggestive of a persistent small bowel obstruction. Small bowel dilatation likely slightly improved since prior exam.
[2019-05-30] MEDS: FAMOTIDINE 20 MG in SYRINGE 3 ML IV SCH (10:13)
[2019-05-30] MEDS ORDERED: CHLORASEPTIC 1.4% SOLN 180 ML BTL MT PRN (13:11)
[2019-05-30] MEDS: KETOROLAC TROMETHAMINE 15 MG/ML VIAL IV PRN ×2 (13:28→22:15)
[2019-05-30] MEDS: D5W AND 1/2NSS 1,000 ML IV SCH (15:23)
[2019-05-30] MEDS: ONDANSETRON INJ 2 MG/ML 2 ML VIAL IV PRN (22:16)
[2019-05-31] MEDS: ACETAMINOPHEN 1,000 MG/100 ML VIAL IV SCH ×2 (00:02→07:55)
[2019-05-31 07:46] LABS: Albumin Level 3.2 gm/dl (3.4-5.0); BUN Creatinine Ratio 12.2 (10-20); Calcium 8.5 mg/dl (8.5-10.1); Creatinine Clr Calc Pharmacy 159.6 ml/min; Est GFR (African American) 125.2; Est GFR (Non-African American) 108.1; Magnesium 2.2 mg/dl (1.8-2.4); Potassium 3.2 mmol/L (3.5-5.1)
[2019-05-31 07:49] LABS: Albumin Globulin Ratio 0.9 (0.9-2); Bilirubin,Total 0.8 mg/dl (0.2-1); Globulin 3.6 gm/dl (2.5-4.0); Total Protein 6.8 gm/dl (6.4-8.2)
[2019-05-31] MEDS: D5W AND 1/2NSS 1,000 ML IV SCH (07:55)
[2019-05-31] MEDS: RASAGILINE 1 MG NG SCH (07:55)
[2019-05-31] MEDS ORDERED: bisacodyL 10 MG SUPP PR STA (09:38)
--- NOTE | 2019-05-31 09:42 | Hospitalist Progress Note ---
Date of Service May 31, 2019 Assessment & Plan (1) Small bowel obstruction: -admission CT scan Findings consistent with a moderate grade partial small bowel obstruction. Transition point within the right mid abdomen, likely on the basis of adhesions. -on IV fluids with dextrose to avoid hypoglycemia -pain and nausea appears controlled -general surgery consult following the patient -continue bowel rest and suctioning with NG tube -patient has been getting suppositories to try to stimulate bowel movement, continue -patient encouraged to ambulate Hypokalemia -replete electrolytes while on NG tube suction -calcium gluconate IV ordered on 05/29/19 -serum potassium 3.2 on 05/30/19: IV potassium to be given -serum potassium 3.2 on 05/31/19: IV potassium to be given (2) Chest pain: -Patient had previously reported chest pain -was given rectal suppository of aspirin previously -troponins negative x 3 -initial chest discomfort may be referred pain from bowel obstruction -no current chest pain at this time (3) HTN (hypertension): -hold oral lisinopril as patient is n.p.o. at this time -blood pressure stable (4) Parkinson's disease: -Patient is on rasagiline only 1 mg PO daily at home, can be given crushed through NG tube (5) DVT prophylaxis: SCDs, encourage ambulation Full code Subjective still no bowel movements or significant flatus. patient does not have chest discomfort. abdomen discomfort over left side is tolerable as per patient. he is not in distress. he has been ambulating. no shortness of breath. no palpitations. no dizziness. no lightheadedness Review of Systems Review of Systems: All systems reviewed & are unremarkable except as noted in HPI & below Physical Exam Constitutional: comfortable Eyes: PERRL, conjunctivae normal, anicteric sclerae EOM intact bilaterally Neck: normal visual inspection Respiratory: normal respiratory effort, lungs clear to auscultation Cardiovascular: Rate/Rhythm: regular rate and regular rhythm Gastrointestinal (Abdomen): abdomen with previous scars, mild tenderness of the left side of abdomen Musculoskeletal: Head/Neck/Chest: normocephalic and head atraumatic Neurologic: PERRL, EOMI, accommodation nl, no face palsy, no dysarthria CN's II-XI intact bilaterally Psychiatric: A+Ox3, euthymic affect Results & Data Vital Signs (Past 12 Hours) Vital Signs Temp Pulse Resp BP Pulse Ox 05/31/19 07:23 37.0 C 67 20 126/76 92 05/30/19 22:46 37.3 C 81 20 154/78 H 93
[2019-05-31] MEDS: POTASSIUM CHLORIDE / WTR 10 MEQ/100 ML PLCT IV SCH ×3 (09:56→12:19)
[2019-05-31] MEDS: FAMOTIDINE 20 MG in SYRINGE 3 ML IV SCH (09:56)
--- NOTE | 2019-05-31 12:40 | Surgery Progress Note ---
Date of Service no BM yet, pt denies significant abdominal pain, no nausea, no vomiting, NG tube 1600ml May 31, 2019 Assessment & Plan (1) Small bowel obstruction: KUB showing persistent SBO, some stool in rectum and right colon per my read NGT with 850 cc output last 24 hours, dark brown/red output today abdomen soft but distended, tender in LUQ no good return of bowel function as of yet Plan: Continue conservative measures: NGT to LIS, NPO may have mouth swabs and chips, IV fluids, Pain management (limit narcotics if possible), IV zofran prn nausea Will start IV Pepcid given dark NGT output and NPO status Dulcolax suppository one time Encouraged patient OOB to chair and ambulate hallway May clamp NGT to ambulate hallway Continue medical management Discussed with patient possibility of needing operative intervention if bowel function does not return with conservative measures. Patient understood. Dr. Galarza has seen and examined pt, agrees with above. 05/31/2019 12:43pm SBO, no BM yet, continue treatment, repeat KUB in am, will F/U D/W possible surgery in no BM next 1-2 days, D/W benefits, risks and alternatives of edvin surgery, pt and hsi family members understood, I answered all questions, will F/U Review of Systems Gastrointestinal: + abdominal pain, + bloating, + nausea, + vomiting and + change in bowel habits Physical Exam Constitutional: WD/WN, vitals as above well developed and well nourished Neck: trachea midline, no thyromegaly Respiratory: normal respiratory effort, lungs clear to auscultation Cardiovascular: RRR, no murmur, no edema Rate/Rhythm: regular rate and regular rhythm Gastrointestinal (Abdomen): normal bowel sounds, soft, nontender, no hepatosplenomegaly middle line scanr and RUQ, no distend, NT, BS + Musculoskeletal: no cyanosis or clubbing, extremities motor strength 5/5 Skin: no rashes, warm and dry Neurologic: awake Psychiatric: Orientation: alert and oriented x 3 Results & Data Vital Signs (Past 12 Hours) Vital Signs Temp Pulse Resp BP Pulse Ox 05/31/19 07:23 37.0 C 67 20 126/76 92 Laboratory Results Abnormal lab results 05/31/19 05/31/19 Range/Units 00:11 07:19 Potassium 3.2 L (3.5-5.1) mmol/L Carbon Dioxide 33 H (21-32) mmol/L Glucose 106 H (70-99) mg/dl POC Glucose 103 H (70-99) AST 13 L (15-37) U/L Albumin 3.2 L (3.4-5.0) gm/dl Diagnostic Findings KUB CLINICAL HISTORY: Evaluate small bowel obstruction. COMPARISON STUDY: CT of the abdomen and pelvis May 28, 2019. KUB May 29, 2019. FINDINGS: Tip of nasogastric tube is within the body of the stomach. Cholecystectomy clips are noted. There are right lower quadrant surgical clips as well. Moderate small bowel dilatation persists. Small bowel which measure up to 6.8 cm in caliber. Gaseous distention has mildly decreased. Caliber of distal small bowel is relatively diminished when compared to the proximal small bowel. IMPRESSION: Findings suggestive of a persistent small bowel obstruction. Small bowel dilatation likely slightly improved since prior exam.
[2019-05-31] MEDS: ONDANSETRON INJ 2 MG/ML 2 ML VIAL IV PRN (17:37)
[2019-06-01] MEDS: D5W AND 1/2NSS 1,000 ML IV SCH ×2 (00:41→17:13)
[2019-06-01 06:00] LABS: BUN Creatinine Ratio 10.3 (10-20); Calcium 8.2 mg/dl (8.5-10.1); Creatinine Clr Calc Pharmacy 166.1 ml/min; Est GFR (African American) 127.3; Est GFR (Non-African American) 109.8; Potassium 3.2 mmol/L (3.5-5.1)
--- NOTE | 2019-06-01 07:16 | XRay Report ---
XR KUB/Abdomen 1 view CLINICAL HISTORY: SBO COMPARISON STUDY: 05/30/2019 FINDINGS: There are surgical clips in the right upper quadrant consistent with a prior cholecystectom y. There is a is a gastric tube with its tip at the level of the gastric cardia. There is persistent but decreasing small bowel dilatation with small bowel loops measuring up to 47 mm. IMPRESSION: Persistent but decreasing small bowel dilatation. ACT 112: Negative or not required by law. Electronically signed by: Raf Kaye M.D. 06/01/2019 7:14 AM
[2019-06-01] MEDS ORDERED: bisacodyL 10 MG SUPP PR STA (08:18)
--- NOTE | 2019-06-01 08:18 | Hospitalist Progress Note ---
Date of Service June 01, 2019 Assessment & Plan (1) Small bowel obstruction: -admission CT scan Findings consistent with a moderate grade partial small bowel obstruction. Transition point within the right mid abdomen, likely on the basis of adhesions. -on IV fluids with dextrose to avoid hypoglycemia -pain and nausea appears controlled -general surgery consult following the patient -KUB 06/01/19: There is persistent but decreasing small bowel dilatation with small bowel loops measuring up to 47 mm. -continue bowel rest and suctioning with NG tube -patient has been getting suppositories to try to stimulate bowel movement, continue -patient encouraged to ambulate Hypokalemia -replete electrolytes while on NG tube suction -calcium gluconate IV ordered on 05/29/19 -serum potassium 3.2 on 05/30/19: IV potassium given -serum potassium 3.2 on 05/31/19: IV potassium given -serum potassium 3.2 on 06/01/19: IV potassium ordered (2) Chest pain: -Patient had previously reported chest pain -was given rectal suppository of aspirin previously -troponins negative x 3 -initial chest discomfort may be referred pain from bowel obstruction -no current chest pain at this time (3) HTN (hypertension): -hold oral lisinopril as patient is n.p.o. at this time -blood pressure stable (4) Parkinson's disease: -Patient is on rasagiline only 1 mg PO daily at home, can be given crushed through NG tube (5) DVT prophylaxis: SCDs, encourage ambulation Full code Subjective KUB 06/01/19: There is persistent but decreasing small bowel dilatation with small bowel loops measuring up to 47 mm. Patient does not report of passing significant flatus. still no bowel movement. abdomen is soft and left lower quadrant pain on palpation persists. no acute distress. NG tube has been suctioning. no vomiting. no shortness of breath. no chest pain Review of Systems Review of Systems: All systems reviewed & are unremarkable except as noted in HPI & below Physical Exam Constitutional: comfortable Eyes: PERRL, conjunctivae normal, anicteric sclerae EOM intact bilaterally ENMT: NG tube has been suctioning Neck: normal visual inspection Respiratory: normal respiratory effort, lungs clear to auscultation Cardiovascular: Rate/Rhythm: regular rate and regular rhythm Gastrointestinal (Abdomen): Patient does not report of passing significant flatus. still no bowel movement. abdomen is soft and left lower quadrant pain on palpation persists. no acute distress. Musculoskeletal: Head/Neck/Chest: normocephalic and head atraumatic Neurologic: PERRL, EOMI, accommodation nl, no face palsy, no dysarthria CN's II-XI intact bilaterally Psychiatric: A+Ox3, euthymic affect Results & Data Vital Signs (Past 12 Hours) Vital Signs Temp Pulse Resp BP Pulse Ox 06/01/19 06:57 36.5 C 81 20 124/71 90 05/31/19 23:43 36.7 C 72 18 125/69 92
[2019-06-01] MEDS: POTASSIUM CHLORIDE / WTR 10 MEQ/100 ML PLCT IV SCH ×3 (09:06→12:43)
--- NOTE | 2019-06-01 09:43 | Surgery Progress Note ---
Date of Service June 01, 2019 Assessment & Plan (1) Small bowel obstruction: KUB showing persistent SBO, but improved compared to yesterday SB dilated at 4.7 cm (6.0 cm previously) NGT with 450 cc output last shift no good return of bowel function as of yet Plan: Will order SB follow through with gastrografin via NGT, clamp NGT until study finished Discussed with patient options of continuing conservative treatment vs surgery. Will await results of SB follow through. IF contrast reaches colon could remove NGT and advance diet slowly and see how he tolerates. If contrast does not reach colon will likely need surgical exploration. Continue conservative measures: NGT to LIS, NPO may have mouth swabs and chips, IV fluids, Pain management (limit narcotics if possible), IV zofran prn nausea Continue IV Pepcid Encouraged patient OOB to chair and ambulate hallway May clamp NGT to ambulate hallway Continue medical management Dr. Galarza has seen and examined pt, agrees with above. Supervising Physician Co-Signing Physician Notes I interviewed and examined this patient I agree with the above note. He still has some nausea but his abdomen is far less distended. He did passing flatus after a suppository. His KUB appears improved. Will obtain small bowel follow- through to assess for persistence of obstruction. Subjective "feeling rough today" still nauseated still not passing much gas, no bowel movement passed gas after suppository not spontaneously Physical Exam Constitutional: WD/WN, vitals as above no acute distress Respiratory: normal respiratory effort; no respiratory distress Gastrointestinal (Abdomen): Inspection/Auscultation: abdomen normal to inspection and + abdominal surgical scar (midline laparotomy scar, cholecystectomy scar, RLQ scar); abdomen not distended Percussion/Palpation: + abdomen tender (LUQ and LLQ) and abdomen soft; no guarding and abdomen not rigid Skin: no rashes, warm and dry Psychiatric: A+Ox3, euthymic affect Results & Data Vital Signs (Past 12 Hours) Vital Signs Temp Pulse Resp BP Pulse Ox 06/01/19 06:57 36.5 C 81 20 124/71 90 05/31/19 23:43 36.7 C 72 18 125/69 92 Laboratory Results 06/01/19 06/01/19 06/01/19 Range/Units 06:01 05:14 00:12 Sodium 139 (136-145) mmol/L Potassium 3.2 L (3.5-5.1) mmol/L Chloride 104 (98-107) mmol/L Carbon Dioxide 31 (21-32) mmol/L Anion Gap 4.0 (3-11) BUN 8 (7-18) mg/dl Creatinine 0.74 (0.6-1.4) mg/dl Est Cr Clr Drug Dosing 166.1 ml/min Est GFR ( Amer) 127.3 Est GFR (Non-Af Amer) 109.8 BUN/Creatinine Ratio 10.3 (10-20) Glucose 104 H (70-99) mg/dl POC Glucose 113 H 97 (70-99) Calcium 8.2 L (8.5-10.1) mg/dl 05/31/19 Range/Units 20:31 Sodium (136-145) mmol/L Potassium (3.5-5.1) mmol/L Chloride (98-107) mmol/L Carbon Dioxide (21-32) mmol/L Anion Gap (3-11) BUN (7-18) mg/dl Creatinine (0.6-1.4) mg/dl Est Cr Clr Drug Dosing ml/min Est GFR ( Amer) Est GFR (Non-Af Amer) BUN/Creatinine Ratio (10-20) Glucose (70-99) mg/dl POC Glucose 99 (70-99) Calcium (8.5-10.1) mg/dl Diagnostic Findings XR KUB/Abdomen 1 view CLINICAL HISTORY: SBO COMPARISON STUDY: 05/30/2019 FINDINGS: There are surgical clips in the right upper quadrant consistent with a prior cholecystectomy. There is a is a gastric tube with its tip at the level of the gastric cardia. There is persistent but decreasing small bowel dilatation with small bowel loops measuring up to 47 mm. IMPRESSION: Persistent but decreasing small bowel dilatation.
--- NOTE | 2019-06-01 11:11 | Fluoroscopy Report ---
FL small bowel study CLINICAL HISTORY: Small bowel obstruction COMPARISON STUDY: 06/01/2019 FLUOROSCOPY TIME: 90 seconds. NUMBER OF FLUOROSCOPIC IMAGES: 17 FINDINGS: The patient was administered 300 cc of Gastroview mixed with 300 cc of water. There were mi ldly dilated proximal jejunal loops. The distal small bowel was of normal caliber. Contrast reached t he colon within 50 minutes. IMPRESSION: Resolving small bowel obstruction with mild residual jejunal dilatation. Contrast reache d the colon within 50 minutes. ACT 112: Negative or not required by law. Electronically signed by: Raf Kaye M.D. 06/01/2019 11:10 AM
[2019-06-01] MEDS ORDERED: bisacodyL 10 MG SUPP PR ONE (11:21)
[2019-06-01] MEDS: ONDANSETRON INJ 2 MG/ML 2 ML VIAL IV PRN (11:26)
[2019-06-01] MEDS: FAMOTIDINE 20 MG in SYRINGE 3 ML IV SCH (11:39)
[2019-06-01] MEDS: RASAGILINE 1 MG NG SCH (13:27)
[2019-06-01] MEDS: POLYETHYLENE (MIRALAX) 17 GM PACK PO SCH (14:21)
[2019-06-02 07:22] LABS: BUN Creatinine Ratio 8.3 (10-20); Calcium 8.2 mg/dl (8.5-10.1); Creatinine Clr Calc Pharmacy 140.6 ml/min; Est GFR (African American) 119.1; Est GFR (Non-African American) 102.8; Potassium 3.3 mmol/L (3.5-5.1)
[2019-06-02] MEDS: POLYETHYLENE (MIRALAX) 17 GM PACK PO SCH (08:11)
[2019-06-02] MEDS: RASAGILINE 1 MG NG SCH (08:12)
[2019-06-02] MEDS: POTASSIUM CHLORIDE / WTR 10 MEQ/100 ML PLCT IV SCH ×3 (08:17→10:39)
[2019-06-02] MEDS: FAMOTIDINE 20 MG in SYRINGE 3 ML IV SCH (08:18)
--- NOTE | 2019-06-02 08:36 | Surgery Progress Note ---
Date of Service June 02, 2019 Assessment & Plan (1) Small bowel obstruction: Small bowel obstruction now resolved Will advance to full liquid diet If tolerates that consider soft diet tomorrow with subsequent discharge if he tolerates Present on Admission?: Yes Subjective Feels well today Denies nausea and vomiting Had 2 bowel movements Denies nausea and vomiting Tolerated clear liquid diet last night and this morning Small bowel follow-through again noted with passage of material from the stomach to the colon with in 90 minutes and only residual mild dilatation of the proximal jejunum Physical Exam Gastrointestinal (Abdomen): Inspection/Auscultation: normal bowel sounds; abdomen not distended Percussion/Palpation: abdomen soft; abdomen nontender Results & Data Vital Signs (Past 12 Hours) Vital Signs Temp Pulse Resp BP Pulse Ox 06/02/19 07:26 36.9 C 80 16 126/92 94 06/02/19 00:39 36.9 C 76 18 122/68 94
--- NOTE | 2019-06-02 10:26 | Hospitalist Progress Note ---
Date of Service June 02, 2019 Assessment & Plan (1) Small bowel obstruction: -admission CT scan Findings consistent with a moderate grade partial small bowel obstruction. Transition point within the right mid abdomen, likely on the basis of adhesions. -pain and nausea appears controlled -general surgery consult following the patient -KUB 06/01/19: There is persistent but decreasing small bowel dilatation with small bowel loops measuring up to 47 mm. -Patient able to make bowel movements as of 06/02/19 and diet advanced from NPO/bowel rest to liquids and NG tube removed -may possibly be transitioned to oral diet later today versus tomorrow; stopped IV fluids with dextrose as patient is eating -patient has been ambulating -will give oral bowel regimen of senna, colace, miralax scheduled Hypokalemia -replete electrolytes while on NG tube suction -calcium gluconate IV ordered on 05/29/19 -serum potassium 3.2 on 05/30/19: IV potassium given -serum potassium 3.2 on 05/31/19: IV potassium given -serum potassium 3.2 on 06/01/19: IV potassium given -serum potassium 3.3 on 06/02/19: IV potassium being given (2) Chest pain: -Patient had previously reported chest pain -was given rectal suppository of aspirin previously -troponins negative x 3 -initial chest discomfort may be referred pain from bowel obstruction -no current chest pain at this time (3) HTN (hypertension): -blood pressure generally stable when off lisinopril -will resume home medications of lisinopril 10 mg daily (4) Parkinson's disease: -Patient is on rasagiline only 1 mg PO daily at home (5) DVT prophylaxis: SCDs, encourage ambulation Full code Subjective Patient made bowel movement yesterday. no tenderness on palpation of abdomen. has been ambulating. no nasal complaints as no longer with NG tube. no vomiting. no chest pain. no palpitations. no dizziness. no headache Review of Systems Review of Systems: All systems reviewed & are unremarkable except as noted in HPI & below Physical Exam Constitutional: comfortable Eyes: PERRL, conjunctivae normal, anicteric sclerae EOM intact bilaterally ENMT: external ear and nose normal, oropharynx normal Neck: normal visual inspection Respiratory: normal respiratory effort, lungs clear to auscultation Cardiovascular: Rate/Rhythm: regular rate and regular rhythm Gastrointestinal (Abdomen): normal bowel sounds, soft, nontender, no hepatosplenomegaly Musculoskeletal: Head/Neck/Chest: normocephalic and head atraumatic Neurologic: PERRL, EOMI, accommodation nl, no face palsy, no dysarthria CN's II-XI intact bilaterally Psychiatric: A+Ox3, euthymic affect Results & Data Vital Signs (Past 12 Hours) Vital Signs Temp Pulse Resp BP Pulse Ox 06/02/19 07:26 36.9 C 80 16 126/92 94 06/02/19 00:39 36.9 C 76 18 122/68 94
[2019-06-02] MEDS ORDERED: POLYETHYLENE (MIRALAX) 17 GM PACK PO SCH (10:30)
[2019-06-02] MEDS: DOCUSATE SODIUM 100 MG CAP PO SCH ×2 (10:39→20:20)
[2019-06-02] MEDS: SENNA 8.8 MG/5 ML UDP PO SCH (11:56)
[2019-06-02] MEDS: lisinopriL 10 MG TAB PO SCH (12:05)
[2019-06-03 06:04] LABS: Basophils # (auto) 0.03 K/uL (0-0.2); Basophils % (auto) 0.5 %; Eosinophils # (auto) 0.34 K/uL (0-0.5); Eosinophils % (auto) 5.6 %; Hematocrit (blood only) 40.6 % (42-52); Hemoglobin 14.4 g/dL (14.0-18.0); Immature Granulocytes # (auto) 0.02 K/uL (0.00-0.02); Immature Granulocytes % (auto) 0.3 %; Lymphocytes # (auto) 1.98 K/uL (1.2-3.4); Lymphocytes % (auto) 32.9 %; Mean Corpuscular Hemoglobin 33.2 pg (25-34); Mean Corpuscular Hgb Conc 35.5 g/dL (32-36); Mean Corpuscular Volume 93.5 fL (80-100); Mean Platelet Volume 10.5 fL (7.4-10.4); Monocytes # (auto) 0.44 K/uL (0.11-0.59); Monocytes % (auto) 7.3 %; Neutrophils # (auto) 3.21 K/uL (1.4-6.5); Neutrophils % (auto) 53.4 %; Platelet Count 206 K/uL (130-400); RDW Coefficient of Variation 12.4 % (11.5-14.5); RDW Standard Deviation 41.6 fL (36.4-46.3); Red Blood Count 4.34 M/uL (4.7-6.1); White Blood Count 6.02 K/uL (4.8-10.8)
[2019-06-03 06:44] LABS: BUN Creatinine Ratio 12.9 (10-20); Calcium 8.6 mg/dl (8.5-10.1); Creatinine Clr Calc Pharmacy 160.9 ml/min; Est GFR (African American) 125.9; Est GFR (Non-African American) 108.6; Potassium 3.2 mmol/L (3.5-5.1)
[2019-06-03] MEDS ORDERED: POTASSIUM CHLORIDE 20 MEQ TABCR PO STA (07:28)
[2019-06-03] MEDS: DOCUSATE SODIUM 100 MG CAP PO SCH (08:05)
[2019-06-03] MEDS: POLYETHYLENE (MIRALAX) 17 GM PACK PO SCH (08:05)
[2019-06-03] MEDS: lisinopriL 10 MG TAB PO SCH (08:05)
[2019-06-03] MEDS: SENNA 8.8 MG/5 ML UDP PO SCH (08:06)
[2019-06-03] MEDS: POTASSIUM CHLORIDE / WTR 10 MEQ/100 ML PLCT IV SCH ×2 (08:06→09:16)
[2019-06-03] MEDS: RASAGILINE 1 MG NG SCH (08:07)
[2019-06-03] MEDS: FAMOTIDINE 20 MG in SYRINGE 3 ML IV SCH (08:09)
--- NOTE | 2019-06-03 12:55 | Hospitalist Progress Note ---
Date of Service June 03, 2019 Assessment & Plan (1) Small bowel obstruction: -admission CT scan Findings consistent with a moderate grade partial small bowel obstruction. Transition point within the right mid abdomen, likely on the basis of adhesions. -pain and nausea appears controlled -general surgery consult following the patient -KUB 06/01/19: There is persistent but decreasing small bowel dilatation with small bowel loops measuring up to 47 mm. -Patient able to make bowel movements as of 06/02/19 and diet advanced from NPO/bowel rest to liquids and NG tube removed -patient transitioned to regular diet by night of 06/02/19 and doing well as of 06/03/19 -patient has been ambulating; on bowel regimen -prescription of potassium 10 meq daily for 10 days senna 8.6 mg daily colace 10 mg twice a day discharge medications sent electronically to [facility] [id number] [place] [address] Hypokalemia -replete electrolytes while on NG tube suction -calcium gluconate IV ordered on 05/29/19 -serum potassium 3.2 on 05/30/19: IV potassium given -serum potassium 3.2 on 05/31/19: IV potassium given -serum potassium 3.2 on 06/01/19: IV potassium given -serum potassium 3.3 on 06/02/19: IV potassium given -serum potassium 3.2 on 06/03/19: oral and IV potassium given Patient should follow up with primary care doctor in 1 week. Patient should have serum electrolytes checked including potassium levels; prescription of potassium 10 meq daily for 10 days (2) Chest pain: -Patient had previously reported chest pain -was given rectal suppository of aspirin previously -troponins negative x 3 -initial chest discomfort may be referred pain from bowel obstruction -no current chest pain at this time (3) HTN (hypertension): -blood pressure generally stable when off lisinopril -continue home medications of lisinopril 10 mg daily (4) Parkinson's disease: -Patient is on rasagiline only 1 mg PO daily at home (5) DVT prophylaxis: encourage ambulation Full code Discharge Diagnosis: Small Bowel Obstruction, Hypokalemia Subjective Patient tolerating regular diet. no acuet abdomen pain. no nausea. no vomiting. no headache. no dizziness. ambulatory. discharge plans discussed Review of Systems Review of Systems: All systems reviewed & are unremarkable except as noted in HPI & below Physical Exam Constitutional: comfortable Eyes: PERRL, conjunctivae normal, anicteric sclerae EOM intact bilaterally ENMT: external ear and nose normal, oropharynx normal Neck: normal visual inspection Respiratory: normal respiratory effort, lungs clear to auscultation Cardiovascular: Rate/Rhythm: regular rate and regular rhythm Gastrointestinal (Abdomen): normal bowel sounds, soft, nontender, no hepatosplenomegaly Musculoskeletal: Head/Neck/Chest: normocephalic and head atraumatic Neurologic: PERRL, EOMI, accommodation nl, no face palsy, no dysarthria CN's II-XI intact bilaterally Psychiatric: A+Ox3, euthymic affect Results & Data Vital Signs (Past 12 Hours) Vital Signs Temp Pulse Pulse Resp BP Pulse Ox 06/03/19 12:48 36.8 C 80 89 18 145/90 H 93 06/03/19 08:32 36.8 C 89 18 145/90 H 93
--- NOTE | 2019-06-03 12:59 | Discharge Summary ---
Date of Service June 03, 2019 Admission HPI Per Admitting Provider 48-year-old man presents with abdominal pain and vomiting. Work-up in the ER revealed evidence of a small bowel obstruction on CT scan. The patient has a history of multiple small bowel obstructions in the past. He reports starting to feel unwell on Wednesday afternoon and subsequently developed abdominal pain that was sharp when he lied supine and turned on his side. He then developed nausea and vomiting that was persistent with worsening abdominal pain. He reports normal bowel movements prior to this. He reports chills without fevers. He was given Zofran and an NG tube was placed this morning, however he reports persistent nausea. He was given 2 mg of IV Dilaudid at 2 separate occasions along with a liter of saline and reports the pain is much better. He is diaphoretic on exam. He reports chest pain that began after the abdominal issues. He denies a history of cardiac issues and has a history of high blood pressure managed with lisinopril 10 mg daily and Parkinson's disease. He denies smoking. Review of systems is otherwise negative. Admission Exam Per Admitting Provider CONSTITUTIONAL: obese, ill-appearing, diaphoretic, vitals as above EYES: PERRL, normal conjunctivae, no scleral icterus ENT: external ear and nose normal, oropharynx clear, NGT in place with yellowish material coming out NECK: trachea midline, no lymphadenopathy RESPIRATORY: clear to auscultation bilaterally, no crackles, rales or wheezes, normal respiratory effort CARDIOVASCULAR: regular rate and rhythm, S1 and 2 heard without murmurs, gallops or rubs, no JVD, no peripheral edema CHEST: inspection of chest was normal GASTROINTESTINAL: hypoactive bowel sounds, soft, diffusely tender with some guarding to palpation, nondistended, protuberant with large scars in midline and RUQ from multiple complex open procedures in the past MUSCULOSKELETAL: strength 5/5 throughout, head is normocephalic and atraumatic, able to sit up in bed on his own. Moves all extremities equally. SKIN: warm and diaphoretic NEUROLOGIC: CN 2-12 grossly intact, no sensory deficit, normal cognition, normal speech, no gross focal deficits. PSYCHIATRIC: alert cooperative and oriented to person, place and time. Principal Diagnosis Small Bowel Obstruction, Hypokalemia Discharge Exam Constitutional comfortable Eyes PERRL, conjunctivae normal, anicteric sclerae EOM intact bilaterally ENMT external ear and nose normal, oropharynx normal Neck normal visual inspection Respiratory normal respiratory effort, lungs clear to auscultation Cardiovascular Rate/Rhythm: regular rate and regular rhythm Gastrointestinal (Abdomen) normal bowel sounds, soft, nontender, no hepatosplenomegaly Musculoskeletal Head/Neck/Chest: normocephalic and head atraumatic Neurologic PERRL, EOMI, accommodation nl, no face palsy, no dysarthria CN's II-XI intact bilaterally Psychiatric A+Ox3, euthymic affect Discharge Data Allergies Allergy/AdvReac Type Severity Reaction Status Date / Time No Known Allergies Allergy Unverified 05/28/19 07:45 Consultations 05/28/19 07:52 Consult General Surgery Stat 05/28/19 07:55 ED Decision to Admit Stat 05/28/19 10:09 Consult Case Management - Discharge Planning Routine Ordered Studies 05/28/19 06:37 CT abd pelvis IV con only Stat 06/01/19 09:28 [place] small bowel study Urgent Hospital Course (1) Small bowel obstruction: -admission CT scan Findings consistent with a moderate grade partial small bowel obstruction. Transition point within the right mid abdomen, likely on the basis of adhesions. -pain and nausea appears controlled -general surgery consult following the patient -KUB 06/01/19: There is persistent but decreasing small bowel dilatation with small bowel loops measuring up to 47 mm. -Patient able to make bowel movements as of 06/02/19 and diet advanced from NPO/bowel rest to liquids and NG tube removed -patient transitioned to regular diet by night of 06/02/19 and doing well as of 06/03/19 -patient has been ambulating; on bowel regimen -prescription of potassium 10 meq daily for 10 days senna 8.6 mg daily colace 10 mg twice a day discharge medications sent electronically to [facility] [address] [place] [address] Hypokalemia -replete electrolytes while on NG tube suction -calcium gluconate IV ordered on 05/29/19 -serum potassium 3.2 on 05/30/19: IV potassium given -serum potassium 3.2 on 05/31/19: IV potassium given -serum potassium 3.2 on 06/01/19: IV potassium given -serum potassium 3.3 on 06/02/19: IV potassium given -serum potassium 3.2 on 06/03/19: oral and IV potassium given Patient should follow up with primary care doctor in 1 week. Patient should have serum electrolytes checked including potassium levels; prescription of potassium 10 meq daily for 10 days (2) Chest pain: -Patient had previously reported chest pain -was given rectal suppository of aspirin previously -troponins negative x 3 -initial chest discomfort may be referred pain from bowel obstruction -no current chest pain at this time (3) HTN (hypertension): -blood pressure generally stable when off lisinopril -continue home medications of lisinopril 10 mg daily (4) Parkinson's disease: -Patient is on rasagiline only 1 mg PO daily at home (5) DVT prophylaxis: encourage ambulation Full code Discharge Diagnosis: Small Bowel Obstruction, Hypokalemia Total Time Total Time Spent Total Time Spent (In Minutes): 40 minutes Total Time Includes: Examination of the Patient, Discharge Planning, Medication Reconciliation and Communication With Other Providers Discharge Plan Discharge Items Patient Disposition: Home - Self-Care Reason For Visit: SOB, CHEST PAIN Discharge Diagnosis: Small bowel obstruction, Hypokalemia Condition on Discharge: Good Activity: Resume your previous activity Non-emergency contact: Primary Care Provider Call non-emergency contact if: you have any medication questions Follow-up/Referrals: PCP,NO [Primary Care Provider] - Diet: Regular Addtl Attending Provider Instructions: Patient should follow up with primary care doctor in 1 week. Patient should have serum electrolytes checked including potassium levels prescription of potassium 10 meq daily for 10 days senna 8.6 mg daily colace 10 mg twice a day discharge medications sent electronically to [facility] [address] [id number] Pending Studies at Discharge: No Stand-Alone Forms: Call Back Authorization, [facility], Smoking Cessation Medications and DC Order Prescriptions: New sennosides 8.6 mg tablet 8.6 mg PO QAM 30 Days Qty: 30 RF: 0 docusate sodium 100 mg Capsule 100 mg PO BID 30 Days Qty: 60 RF: 0 potassium chloride 10 mEq tablet extended release 10 meq PO DAILY 10 Days Qty: 10 RF: 0 Continued lisinopril 10 mg tablet 10 mg PO DAILY RF: 0 rasagiline 1 mg tablet 1 mg PO DAILY RF: 0 Discharge Orders: Discharge Order (Routine); Ordered 06/03/19 Ordered By: Lance De La Torre Admission Data Admit Date/Time: 05/28/19 09:28 Attending Provider: Lance De La Torre Admit Provider: Kelly Pearson Primary Care Provider: PCP,NO Other Providers: Stevo Glasgow Robin A.
== END 2019-06-03 13:30 | disposition home or self-care (01) | DRG 390 ==
LOC: ED 06:18 → 2N 09:28 → SUATTDRO 09:28 → 2N 10:04 → 4W 06-02 22:36